=== PATIENT | female | born 1950 | race Caucasian/White ===

== ENCOUNTER 2023-05-12 16:07 | Outpatient (RCR) | payer MEDICARE, OTHER, SELFPAY | END 2023-05-12 23:59 | disposition home or self-care (01) | LOC: ROT 16:07 | PROVIDERS: ATTENDING PHYSICIAN Orthopaedic Surgery Hand Surgery; FAMILY PHYSICIAN Family Medicine | DX: S52.572D Other intraarticular fracture of lower end of left radius, subsequent encounter for closed fracture with routine healing (principal); S52.252D Displaced comminuted fracture of shaft of ulna, left arm, subsequent encounter for closed fracture with routine healing | CPT/HCPCS: 97010; 97022; 97110; 97140; 97167; 97530; 97535 ==

== ENCOUNTER 2023-06-11 14:17 | Outpatient (RCR) | payer MEDICARE, OTHER, SELFPAY | END 2023-06-11 23:59 | disposition home or self-care (01) | LOC: ROT 14:17 | PROVIDERS: ATTENDING PHYSICIAN Orthopaedic Surgery Hand Surgery; FAMILY PHYSICIAN Family Medicine | DX: Z47.89 Encounter for other orthopedic aftercare (principal); S52.572D Other intraarticular fracture of lower end of left radius, subsequent encounter for closed fracture with routine healing; S52.252D Displaced comminuted fracture of shaft of ulna, left arm, subsequent encounter for closed fracture with routine healing; Z73.6 Limitation of activities due to disability; G56.02 Carpal tunnel syndrome, left upper limb | CPT/HCPCS: 97010; 97018; 97022; 97110; 97140; 97530 ==

== ENCOUNTER → 2023-06-18 07:40 | Outpatient (REF) | payer MEDICARE, OTHER, SELFPAY | LOC: EMG 07:40 | PROVIDERS: ATTENDING PHYSICIAN Orthopaedic Surgery Orthopaedic Trauma; FAMILY PHYSICIAN Family Medicine | DX: G56.02 Carpal tunnel syndrome, left upper limb (principal); S52.572B Other intraarticular fracture of lower end of left radius, initial encounter for open fracture type I or II; R20.0 Anesthesia of skin | CPT/HCPCS: 95886; 95910 ==

== ENCOUNTER 2023-07-09 14:02 | Outpatient (RCR) | payer MEDICARE, OTHER, SELFPAY | END 2023-07-09 23:59 | disposition home or self-care (01) | LOC: ROT 14:02 | PROVIDERS: ATTENDING PHYSICIAN Orthopaedic Surgery Hand Surgery; FAMILY PHYSICIAN Family Medicine | DX: Z47.89 Encounter for other orthopedic aftercare (principal); S52.572D Other intraarticular fracture of lower end of left radius, subsequent encounter for closed fracture with routine healing; S52.252D Displaced comminuted fracture of shaft of ulna, left arm, subsequent encounter for closed fracture with routine healing; Z73.6 Limitation of activities due to disability; W10.9XXD Fall (on) (from) unspecified stairs and steps, subsequent encounter | CPT/HCPCS: 97018; 97110; 97140 ==

== ENCOUNTER 2023-08-11 16:21 | Outpatient (RCR) | payer MEDICARE, OTHER, SELFPAY | END 2023-08-11 23:59 | disposition home or self-care (01) | LOC: ROT 16:21 | PROVIDERS: ATTENDING PHYSICIAN Orthopaedic Surgery Hand Surgery; FAMILY PHYSICIAN Family Medicine | DX: Z47.89 Encounter for other orthopedic aftercare (principal); S52.572D Other intraarticular fracture of lower end of left radius, subsequent encounter for closed fracture with routine healing; S52.252D Displaced comminuted fracture of shaft of ulna, left arm, subsequent encounter for closed fracture with routine healing; Z73.6 Limitation of activities due to disability; W10.9XXD Fall (on) (from) unspecified stairs and steps, subsequent encounter | CPT/HCPCS: 97018; 97110; 97140 ==

== ENCOUNTER 2023-08-25 15:19 | Outpatient (RCR) | payer MEDICARE, OTHER, SELFPAY | END 2023-09-08 08:09 | disposition home or self-care (01) | LOC: ROT 15:19 | PROVIDERS: ATTENDING PHYSICIAN Orthopaedic Surgery Hand Surgery; FAMILY PHYSICIAN Family Medicine | DX: Z47.89 Encounter for other orthopedic aftercare (principal); S52.572D Other intraarticular fracture of lower end of left radius, subsequent encounter for closed fracture with routine healing; S52.252D Displaced comminuted fracture of shaft of ulna, left arm, subsequent encounter for closed fracture with routine healing; Z73.6 Limitation of activities due to disability; W10.9XXD Fall (on) (from) unspecified stairs and steps, subsequent encounter | CPT/HCPCS: 97018; 97110; 97140 ==

== ENCOUNTER 2024-04-27 06:17 | Day surgery (SDC) | payer MEDICARE, OTHER, SELFPAY | END 2024-04-27 08:35 | disposition home or self-care (01) | LOC: GI 06:17 | PROVIDERS: ATTENDING PHYSICIAN Internal Medicine Gastroenterology | DX: Z86.0100 Personal history of colon polyps, unspecified (principal); K64.8 Other hemorrhoids; K57.30 Diverticulosis of large intestine without perforation or abscess without bleeding; Z80.0 Family history of malignant neoplasm of digestive organs | CPT/HCPCS: G0105 ==

== ENCOUNTER → 2024-05-19 13:42 | Outpatient (REF) | payer MEDICARE, OTHER, SELFPAY | LOC: WDC 13:42 | PROVIDERS: ATTENDING PHYSICIAN Family Medicine | DX: Z12.31 Encounter for screening mammogram for malignant neoplasm of breast (principal) | CPT/HCPCS: 77063; 77067 ==

== ENCOUNTER → 2024-07-05 07:14 | Outpatient (REF) | payer MEDICARE, OTHER, SELFPAY ==
[2024-07-05 08:02] LABS: % Basophils 0.5 % (0-2); % Eosinophils 4.5 % (0-6); % Immature Granulocytes 0.3 % (0-0.5); % Lymphocytes 40.4 % (20.5-51.1); % Monocytes 8.8 % (1.7-9.3); % Neutrophils 45.5 % (42.2-75.2); Absolute Eosinophils 0.2 10^3/uL (0-0.7); Absolute Lymphocytes 1.6 10^3/uL (1.2-3.4); Absolute Monocytes 0.4 10^3/uL (0.1-0.6); Absolute Neutrophils 1.8 10^3/uL (1.4-6.5); Hematocrit 37.9 % (37.0-47.0); Hemoglobin 12.6 g/dL (12.0-16.0); Mean Corp Hgb Conc. 33.2 g/dL (33.0-37.0); Mean Corpuscular Volume 93.3 fL (81.0-99.0); Mean Platelet Volume 10.5 fL (7.4-10.4); Nucleated Red Blood Cells % 0 %; Platelet Count 236 10^3/uL (130-400); Red Blood Cell Count 4.06 10^6/uL (4.20-5.40); Red Cell Dist. Width 11.5 % (11.5-14.5)
[2024-07-05 08:38] LABS: ALT (SGPT) 21 U/L (0-35); AST (SGOT) 28 U/L (14-36); Albumin 4.2 g/dl (3.5-5.0); Alkaline Phosphatase 77 U/L (38-126); Blood Urea Nitrogen 14 mg/dl (7-17); Calcium 9.8 mg/dl (8.4-10.2); Carbon Dioxide 29 mmol/L (22-30); Chloride 108 mmol/L (98-107); Glucose 98 mg/dl (70-99); HDL Cholesterol 80 mg/dl; LDL Cholesterol, Calculated 101 mg/dl; Potassium 4.5 mmol/L (3.5-5.1); Sodium 142 mmol/L (135-145); Total Bilirubin 0.6 mg/dl (0.2-1.3); Total Cholesterol 198 mg/dl (50-199); Total Protein 6.3 g/dl (6.3-8.2); Triglyceride 87 mg/dl (10-149); Very Low Density Lipoprotein 17 mg/dl (0-30); eGFR > 60.00
[2024-07-05 10:28] LABS: Vitamin D, 25-OH*** 32.6 ng/mL (30-80)
[2024-07-05 10:42] LABS: TSH 2.13 uIU/ml (0.47-4.68)
== END ==
LOC: REG 07:14
PROVIDERS: ATTENDING PHYSICIAN Family Medicine
DX: Z00.00 Encounter for general adult medical examination without abnormal findings (principal); Z87.11 Personal history of peptic ulcer disease; Z86.19 Personal history of other infectious and parasitic diseases; Z86.16 Personal history of COVID-19; Z83.3 Family history of diabetes mellitus; Z80.3 Family history of malignant neoplasm of breast; Z80.0 Family history of malignant neoplasm of digestive organs; M85.80 Other specified disorders of bone density and structure, unspecified site; M16.11 Unilateral primary osteoarthritis, right hip; K21.9 Gastro-esophageal reflux disease without esophagitis; E55.9 Vitamin D deficiency, unspecified
CPT/HCPCS: 36415; 80053; 80061; 82306; 84443; 85025